=== PATIENT | male | born 2005 | race Caucasian/White ===

== ENCOUNTER 2025-06-28 19:27 | Emergency (ER) | payer BC, SELFPAY ==
--- NOTE | ~2025-06-28 | XR_ITS ---
EXAM: XR foot RT min 3V, XR ankle RT min 3V DATE: 06/28/2025 19:39 (accession [id number]), 06/28/2025 19:40 (accession [id number]) HISTORY: FALL. PROXIMAL RIGHT FOOT PAIN. . COMPARISON: None available. FINDINGS: Normal mineralization. Comminuted distal right fibular fracture above the level of the adrian nt line (Sears type C) with 5 mm lateral displacement. Medial gutter widening with mild lateral sublu xation of the talus. Syndesmotic widening. No lytic or blastic lesion. Joint spaces are maintained. A chilles enthesopathy. No erosion or periosteal change. Moderate ankle joint effusion. Soft tissue swe lling medially and about the fibular fracture site. IMPRESSION: Medial gutter widening as can be seen with medial ligamentous injury. Mild lateral sublux ation of the talus. Comminuted, mildly displaced distal right fibular fracture. Syndesmotic injury is suspected. Reviewed, dictated and finalized at location K. IMPRESSION: Medial gutter widening as can be seen with medial ligamentous injur y. Mild lateral subluxation of the talus. Comminuted, mildly displaced distal r ight fibular fracture. Syndesmotic injury is suspected.
[2025-06-28 19:27] VITALS: BP 140/81; PULSE 107; RESP 18; TEMP 36.3; O2SAT 98
--- NOTE | 2025-06-28 19:29 | ED_ITS ---
HPI - Extremity Injury (Lower) General Chief Complaint: Extremity Injury, Lower Stated Complaint: foot injury Time Seen by Provider: 06/28/25 19:28 Source: patient and family Mode of arrival: ambulatory Limitations: no limitations History of Present Illness HPI Narrative: Patient is a 20-year-old male with a right ankle injury while playing slip and slide kickball. This happened right before arrival to the ER. He injured the lateral aspect of the right lower extremity. No other injuries to include head or neck. MD complaint: leg injury ( Right lower), ankle injury ( right lower) and fall Onset (ago): minute(s) ( 30) Injury: Right: ankle Type of Injury: blunt Place: street/outdoors Severity: moderate Severity scale (1-10): 8 Relieving factors: nothing Exacerbating factors: weight bearing, movement and palpation Context: fall Associated symptoms: snap/pop sensation and able to partially bear weight Other symptoms: none Treatments prior to arrival: cold therapy Related Data Allergies Allergy/AdvReac Type Severity Reaction Status Date / Time No Known Allergies Allergy Unverified 02/05/18 12:37 Review of Systems Review of Systems: All systems reviewed & are unremarkable except as noted in HPI and below Constitutional: Constitutional: Reports no additional constitutional complaints Eyes: Eyes: Reports no additional eye complaints ENT: Reports system reviewed and no additional complaints, except as docume nted Cardiovascular: Cardiovascular: Reports no additional cardiovascular complaints Respiratory: Respiratory: Reports no additional respiratory complaints Gastrointestinal: Gastrointestinal: Reports no additional gastrointestinal complaints Genitourinary: Genitourinary: Reports no additional male genitourinary complaints Musculoskeletal: Musculoskeletal: Reports no additional musculoskeletal complaints Integumentary/Breasts: Skin/Breast: Reports system reviewed and no additional complaints, except as docu Neurologic: Reports system reviewed and no additional complaints, except as documented Psychiatric: Psychiatric: Reports no additional psychiatric complaints Endocrine: Endocrine: Reports no additional endocrine complaints Hematologic/Lymphatic: Hematologic/Lymphatic: Reports no additional hematologic/lymphatic complaints Allergic/Immunologic: Allergic/Immunologic: Reports no additional allergic/immunologic complaints Exam Const: General: healthy appearing Nutritional Appearance: well nourished Orientation/consciousness: patient oriented x3 HENMT: Head: normal to inspection Ears: external ears normal Face/Nose/Sinus: Normal external nose present Eyes: Conjunctivae: conjunctivae normal Pupils: Equal, round and reactive pupils present EOM: EOMs intact bilaterally Neck: Neck: normal visual inspection Chest: Chest palpation & inspection: normal inspection of the chest Resp: Effort & Inspection: normal respiratory effort and not labored Auscultation: clear to auscultation bilaterally and no crackles Cardio: Rate: regular rate Rhythm: regular rhythm Heart sounds: no murmurs GI: Inspection: non-distended GI Palp: Yes Soft to palpation and No Tenderness to palpation present (GI) Auscultation: normal bowel sounds : General: Yes bladder normal to palpation Back/Spine/Pelvis: Back: no CVA tenderness Skin: General skin exam: normal color Rashes: no rashes Wounds: no wounds Neuro: General: patient oriented x3, moves all extremities, no meningeal signs, no focal motor deficits and CN's II-XI intact bilaterally Extrem: General: abnormal to inspection, no clubbing, cyanosis or edema, no pedal edema and no edema Other: swollen right lateral aspect ankle distal fibula and tenderness to palpation; distal pulses intact 2+ Psych: Mental Status: mental status grossly normal Affect: normal affect Attitude: cooperative Course Vital Signs Vital signs: Vital Signs Temperature 36.3 C L 06/28/25 19:27 Pulse Rate 107 H 06/28/25 19:27 Respiratory Rate 18 06/28/25 19:27 Blood Pressure 140/81 06/28/25 19:27 Pulse Oximetry 98 06/28/25 19:27 Oxygen Delivery Room Air 06/28/25 19:27 Temperature 36.3 C L 06/28/25 19:27 Pulse Rate 107 H 06/28/25 19:27 Respiratory Rate 18 06/28/25 19:27 Blood Pressure 140/81 06/28/25 19:27 Pulse Oximetry 98 06/28/25 19:27 Oxygen Delivery Room Air 06/28/25 19:27 MDM - Extremity Injury (Lower) MDM Narrative Medical decision making narrative: patient is a 20-year-old male with a right distal lower extremity injury prior to arrival. We will get an x-ray. X-ray was positive for a distal fibula fracture which needs orthopedic surgery in the next week. We will put an OCL at this time. Pain control. On final review of the x-ray results, there is multiple fractures situation and we will call Trauma Services for evaluation. [facility] has accepted the patient ER to ER. This is higher level medical care. He was seen orthopedic surgeon kevin. We do not have the services. Imaging Data Attestation: I personally reviewed and interpreted this imaging study as follows: Radiologist's impression: X-ray right foot and ankle shows IMPRESSION: Medial gutter widening as can be seen with medial ligamentous injury. Mild lateral subluxation of the talus. Comminuted, mildly displaced distal right fibular fracture. Syndesmotic injury is suspected. Critical Care Time Critical Care Time Critical Care Time: Yes Total Critical Care Time: 35 Discharge Plan Discharge Clinical Impression: Trauma Fracture of distal fibula Qualifiers: Encounter type: initial encounter Fracture type: closed Fracture morphology: other fracture Laterality: right Qualified Code(s): S82.831A - Other fracture of upper and lower end of right fibula, initial encounter for closed fracture Fracture of talus Qualifiers: Encounter type: initial encounter Fracture type: closed Talus location: unspecified portion of talus Fracture alignment: displaced Laterality: right Qualified Code(s): S92.101A - Unspecified fracture of right talus, initial encounter for closed fracture Patient Disposition: Acute Care Hospital Condition: Stable Additional Instructions: please follow-up with the primary doctor in the next week. You will need to see an orthopedic surgeon in the next week. This area will need surgery. Please do not put any pressure on to this area. Crutches can be a bought at [employer]. Pain medicine sent to your pharmacy. Patient Language: Brazilian Follow-up/Referrals: Merlin Yu [Student Physical Therapist] - Time of Disposition: 20:43
--- OUTSIDE RECORDS SUMMARY | 2025-06-28 19:29 | XMS_ITS | Clinical Summary ---
Author Organization [facility] Address [address] [address] Phone Care Team Providers Care Senior Rd Engineer Name Role Phone Jayleen Maddox APRN Primary Care Provider Allergies No known active allergies Medications amoxicillin-clav ulanate (AUGMENTIN) 400-57 MG/5ML Recon Suspension 11cc PO BID 440 mL 9 Active Additional Information Patient not taking.Reported on 02/26/2019 Probiotic Product (PROBIOTIC & ACIDOPHILUS EX ST) Capsule Take 1 daily by mouth at lunch time while on antibiotics and for at least 5 days after completing the antibiotic course. It is better to take a probiotic that contains more than one strain of good gut bacteria 9 Active Additional Information Patient not taking.Reported on 02/26/2019 HYDROcodone-acet aminophen (NORCO) 5-325 MG Tablet 1, 1 & 1/2, or 2 tabs PO Q4hr prn pain 100 Tab 9 Active Additional Information Patient not taking.Reported on 02/26/2019 sucralfate (CARAFATE) 1 GM/10ML Suspension 10 cc gargle and expectorate QID (PC & QHS); take until gone 400 mL 9 Active Additional Information Patient not taking.Reported on 02/26/2019 omeprazole (PRILOSEC) 40 MG CAPSULE DELAYED RELEASEIndicatio ns:Laryngopharyn geal reflux TAKE 1 CAPSULE BY MOUTH EVERY DAY 30-60 MINUTES BEFORE THE LARGEST MEAL 30 Cap 9 Active Active Problems Problem Noted Date Diagnosed Date Laryngopharyngeal reflux 01/29/2019 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 Resolved Problems Problem Noted Date Diagnosed Date Resolved Date Acute recurrent streptococcal tonsillitis 01/14/2019 02/26/2019 Adenotonsillar hypertrophy 01/14/2019 0 02/26/2019 Family History Medical History Relation Name Comments No Known Problems Brother Hypertension Father High Cholesterol Mother Hypertension Mother No Known Problems Sister 1 No Known Problems Sister 2 No Known Problems Sister 3 No Known Problems Sister 4 No Known Problems Sister 5 Relation Name Status Comments Brother Alive Father Alive Mother Alive Sister 1 Alive Sister 2 Alive Sister 3 Alive Sister 4 Alive Sister 5 Alive Social History Tobacco Use Types Packs/Day Years Used Date Smoking Tobacco: Never Smokeless Tobacco: Never Alcohol Use Standard Drinks/Week Comments Never 0 (1 standard drink = 0.6 oz pur e alcohol) AUDIT-C Answer Date Recorded Frequency of Alcohol Consumption Never 01/14/2019 Average Number of Drinks Not on file 019 Frequency of Binge Drinking Not on file 02/2019 Sexually Active Control Partners Comments Never Sex and Gender Information Value Date Recorded Sex Assigned at Not on file Legal Sex Male 10:55 PM CDT Gender Identity Not on file Sexual Orientation Not on file Last Filed Vital Signs Vital Sign Reading Time Taken Comments Blood Pressure 122/80 02/26/2019 1:31 PM CDT Pulse 79 02/26/2019 1:31 PM CDT Temperature 36.4 C (97.5 F) 02/26/2019 1:31 PM CDT Respiratory Rate 20 02/26/2019 1:31 PM CDT Oxygen Saturation 98% 02/26/2019 1:31 PM CDT Inhaled Oxygen Concentration - - Weight 121.1 kg (267 lb) 02/26/2019 1:31 PM CDT Height 172.7 cm (5' 8) 02/26/2019 1:31 PM CDT Body Mass Index 40.6 02/26/2019 1:31 PM CDT Plan of Treatment Health Maintenance Due Date Last Done Comments Hepatitis C Virus (HCV) Screening 2004 Meningococcal B Immunization (1 of 2 - Standard) 2020 SARS-COV-2 Immunization ( season) 2024 Influenza Immunization (#1) 2025 09/02/2015, 1 12/16/2003 Respiratory Syncytial Virus (RSV) Immunization (Adult) (1 - 1-dose 75+ series) 2079 Hepatitis B Immunization Completed 005, 2004, 2004 Pneumococcal Immunization Combined Aged Out 06/07/2005, 2004, 2004 No longer eligible based on patient's age to complete this topic Measles Mumps Rubella (MMR) Immunization Discontinued 08/27/2008, 06/07/2005 Polio (IPV) Immunization Discontinued 008, 06/07/2005, 2004, Additional history exists Varicella Immunization Discontinued 08/27/2008, 2004 Hepatitis A Immunization Discontinued 05/25/2009, 08/13 DTaP/Tdap/Td Immunization Discontinued 2014, 08/27/2008, 06/07/2005, Additional history exists Meningococcal Immunization (ACWY) Aged Out 06/30/2015 No longer eligible based on patient's age to complete this topic TdaP Immunization Completed 06/30/2015 Human Papillomavirus (HPV) Immunization Completed 06/26/2018, 01/01/2016, 09/02/2015, Additional history exists Rotavirus Immunization Aged Out No lo nger eligible based on patient's age to complete this topic Insurance MEDICAID [employer] Care Teams Senior Rd Engineer Relationship Specialty Start Date End Date Jayleen Maddox APRN [address] [place] [address] [address] [place] [address] PCP - General Family Medicine 01/09/19
--- OUTSIDE RECORDS SUMMARY | 2025-06-28 19:29 | XMS_ITS | Clinical Summary ---
Author Organization [facility] Address [address] [place] [address] Care Team Providers Care Scheduling Clerk Name Role Phone Candi Yu CHIEF WHEELAGE CLERK Primary Care Provider [phone] Allergies No known active allergies Medications No known medications Active Problems Problem Noted Date Diagnosed Date Hidradenitis suppurativa 07/10/2023 Assessment & Plan (07/10/2023 5:16 PM CDT): Doxycycline 100 mg b.i.d. x3 months Immunizations Immunization Administration Dates Next Due DTaP 08/27/2008,2004,2004 DTaP, Unspecified 06/07/2005 HPV9 06/26/2018, 6,09/02/2015,06/30 Hep A, Ped Unspecified 05/25/2009,08/27/2008 Hep B / HiB 06/07/2005,2004 Hep B, Adolescent or Pediatric 2004 HiB 2004 IPV 08/27/2008,2004,2004 Influenza, Quadrivalent, Spl it, Preservative Free, Intramuscular 09/02/2015 Influenza, Unspecified 07/10/2023(Deferr ed: Patient Refused),07/14/2022(Deferred: Patient Refused),2004 MMR 08/27/2008,06/07/2005 Meningococcal B, OMV (Bexsero) 02/15/2021 Meningococcal MCV4P (Menactra) 02/15/2021,2014 Pneumococcal Conjugate 7-Valent 2004,05/03 Pneumococcal Conjugate PCV 13 06/07/2005 Polio, Unspecified 06/07/2005 Tdap 06/30/2015 Varicella 08/27/2008,06/07/2005 Surgical History Surgery Date Site/Laterality Comments TONSILECTOMY, ADENOIDECTOMY, BILATERAL MYRINGOTOMY AND TUBES Medical History Medical History Date Comments No pertinent past medical history Hidradenitis suppurativa Family History Medical History Relation Name Comments Hypertension Father Asthma Mother Relation Name Status Comments Father Alive Mother Alive Social History Tobacco Use Types Packs/Day Years Used Date Smoking Tobacco: Never Smokeless Tobacco: Never AUDIT-C Answer Date Recorded Q1: How often do you have a drink containing alcohol? Never 07/10/2023 Q2: How many drinks containi ng alcohol do you have on a typical day when you are drinking? Patient does not drink Q3: How often do you have si x or more drinks on one occasion? Never 07/10/2023 PHQ-2 Answer Date Recorded PHQ-2 Total Score (If total score is 3 or more points, staff should administer the PHQ-9) 0 07/10/2023 Sex and Gender Information Value Date Recorded Sex Assigned at Not on file Legal Sex Male 1:13 PM INFORMATION CONSULTANT Gender Identity Not on file Sexual Orientation Not on file Obstetrics History Last Filed Vital Signs Vital Sign Reading Time Taken Comments Blood Pressure 116/64 07/10/2023 4:54 PM CDT Pulse 64 07/10/2023 4:54 PM CDT Temperature 36.6 C (97.9 F) 07/10/2023 4:54 PM CDT Respiratory Rate 16 07/10/2023 4:54 PM CDT Oxygen Saturation 99% 07/10/2023 4:54 PM CDT Inhaled Oxygen Concentration - - Weight 136.2 kg (300 lb 3.2 oz) 07/10/2023 4:54 PM CDT Height 175.3 cm (5' 9) 07/10/2023 4:54 PM CDT Body Mass Index 44.33 07/10/2023 4:54 PM CDT Plan of Treatment Health Maintenance Due Date Last Done Comments Hepatitis C Screening 2004 Meningococcal B Vaccine (2 o f 2 - Bexsero SCDM 2-dose series) 08/17/2021 02/15/2021 Depression Screening 07/10/2024 07/10/2023 Regular Well Visit/Exam 18-64 07/10/2024 07/10/2023 DTaP/Tdap/Td Vaccine (6 - Td or Tdap) 06/30/2025 06/30/2015, 08/27/2008, 06/07/2005, Additional history exists Influenza Vaccine (#1) 2025 09/02/2015, 2003 Hepatitis B Screening Completed 06/07/2005 , 2004, 2004 Pneumococcal vaccine <65 Completed 005, 2004, 2004 Varicella Vaccines Completed 08/27/2008, 06/07/2005 HPV Vaccines Completed 06/26/2018, 12/14, 09/02/2015, Additional history exists Meningococcal Vaccine Completed 02/15/2021, 015 Insurance Care Teams Scheduling Clerk Relationship Specialty Start Date End Date Candi Yu NP PCP - General Family Medicine 07/10/23
[2025-06-28] MEDS: HYDROmorphone HCL INJ (*CRX) 2 MG/ML VIAL 0.5 MG IM (19:56)
--- OUTSIDE RECORDS SUMMARY | 2025-06-28 20:04 | XMS_ITS | Clinical Summary ---
Author Organization [facility] Address [address] [address] Phone Care Team Providers Care Telecommunications Support Name Role Phone Jayleen Maddox APRN Primary [...] PLAN [employer]ICAID [employer] Care Teams Telecommunications Support Relationship Specialty Start Date End Date Jayleen Maddox APRN [address] [place] [address] [address] [place] [address] PCP - General Family Medicine 01/09/19
--- OUTSIDE RECORDS SUMMARY | 2025-06-28 20:04 | XMS_ITS | Clinical Summary ---
Author Organization [facility] Address [address] [place] [address] Care Team Providers Care In Flight Technician Name Role Phone Candi Yu DIRECTOR OF BUSINESS CONTINUITY Primary Care Provider [phone] Allergies No known active allergies Medications No [...] on file Legal Sex Male 1:13 PM PHARMACY DELIVERY DRIVER Gender Identity Not on file Sexual Orientation [...] Vaccine Completed 02/15/2021, 015 Insurance Care Teams In Flight Technician Relationship Specialty Start Date End Date Candi Yu NP PCP - General Family Medicine 07/10/23
[2025-06-28 20:58] VITALS: BP 143/71; PULSE 94; RESP 18; TEMP 36.4; O2SAT 97
== END 2025-06-28 21:29 | disposition short-term general hospital (02) ==
PROVIDERS: Emergency Provider Emergency Medicine; PCP Nurse Practitioner
DX: S82.831A Other fracture of upper and lower end of right fibula, initial encounter for closed fracture (principal); S92.101A Unspecified fracture of right talus, initial encounter for closed fracture; X58.XXXA Exposure to other specified factors, initial encounter; Y93.69 Activity, other involving other sports and athletics played as a team or group
CPT/HCPCS: 29515; 73610; 73630; 96372; 99285; J1171